=== PATIENT | female | born 1980 | race Asian ===

== ENCOUNTER → 2018-08-07 15:22 | Outpatient (CLI) | payer OTHER, SELFPAY ==
--- NOTE | 2018-08-07 | DI.US.S_ITS ---
PROCEDURE: US THYROID INDICATIONS: THYROTOXICOSIS WITH DIFFUSE GOITER TECHNIQUE: Real-time scanning was performed of the thyroid gland, with image documentation. COMPARISON: [facility], US, THYROID, 01/09/2016, 8:36. FINDINGS: Right: Thyroid lobe measures 5.7 x 2.1 x 2.5 cm, and is heterogeneous s in echotexture. No focal nodules. Left: Thyroid lobe measures 6.2 x 1.7 x 2.0 cm, and is heterogeneous in echotexture. No focal nodules. Isthmus: 7 mm thick. IMPRESSION: Stable interval exam demonstrating heterogeneous thyroid gland without focal nodule. Dictated by: Dania Peck M.D. on 08/07/2018 at 17:38 Approved by: Dania Peck M.D. on 08/07/2018 at 17:39
== END ==
PROVIDERS: PCP Internal Medicine; Visit Provider Internal Medicine
DX: E05.00 Thyrotoxicosis with diffuse goiter without thyrotoxic crisis or storm (principal)
CPT/HCPCS: 76536

== ENCOUNTER → 2020-01-20 17:20 | Outpatient (CLI) | payer OTHER, SELFPAY ==
[2020-01-20 19:10] LABS: TSH w/ Reflex to FT4 2.09 uIU/mL (0.47-4.68)
[2020-01-27 11:44] LABS: Urea Breath Test >18YRS Negative
== END ==
PROVIDERS: PCP Internal Medicine; Referring Provider Internal Medicine; Visit Provider Internal Medicine
DX: R10.33 Periumbilical pain (principal); E05.00 Thyrotoxicosis with diffuse goiter without thyrotoxic crisis or storm
CPT/HCPCS: 36415; 83013; 84443

== ENCOUNTER → 2021-05-11 08:17 | Outpatient (CLI) | payer OTHER, SELFPAY ==
--- NOTE | 2021-05-11 | DI.MRI.S_ITS ---
PROCEDURE: MR LUMBAR SPINE WO CON INDICATIONS: Low back pain, unspecified TECHNIQUE: Noncontrast sagittal T1 spin echo and T2 fast echo, sagittal STIR, axial T1 and T2 fast spin echo through the lumbar spine. In cases with scoliosis, additional coronal T2 fast spin echo may be performed. COMPARISON: [facility] [place], CR, XR LUMBAR SPINE WITH OBLIQUES, 04/05/2021, 12:32. FINDINGS: Image quality: Diagnostic, with note made of motion artifact. Alignment and Curvature: There is normal bony alignment. Bone Marrow: Marrow is of normal overall signal. No acute vertebral body compression fractures. Spinal Cord: Conus medullaris terminates at the L1 level. Visualized cord demonstrates normal signal and size. Paraspinous Soft Tissues: No paravertebral masses. T12-L1: Normal appearance. L1-L2: Normal appearance. L2-L3: Normal appearance. L3-L4: No significant abnormality is seen. L4-L5: The disc height and disk signal are well-preserved. Mild generalized disc bulge is seen. Mild facet joint hypertrophy is seen. An annular fissure can be seen posteriorly and on the left, as on series 6, image 10 and on series 4, image 12. There is [id number] right-sided and moderate left-sided neural foraminal narrowing seen. No significant central canal narrowing is seen. L5-S1: Normal appearance. IMPRESSION: Focal L4-L5 degenerative change, including moderate left-sided neural foraminal narrowing. An annular fissure can also be seen on the left. Dictated by: Abe Lacey M.D. on 05/11/2021 at 10:21 Approved by: Abe Lacey M.D. on 05/11/2021 at 10:24
== END ==
PROVIDERS: PCP Internal Medicine; Referring Provider Physical Medicine & Rehabilitation Pain Medicine; Visit Provider Physical Medicine & Rehabilitation Pain Medicine
DX: M54.50 Low back pain, unspecified (principal); M48.061 Spinal stenosis, lumbar region without neurogenic claudication
CPT/HCPCS: 72148

== ENCOUNTER → 2021-05-22 13:07 | Outpatient (CLI) | payer OTHER, SELFPAY ==
--- NOTE | 2021-05-22 | DI.MRI.S_ITS ---
PROCEDURE: MR CERVICAL SPINE WO CON INDICATIONS: Cervicalgia TECHNIQUE: Noncontrast sagittal T1 spin echo and T2 fast spin echo, sagittal STIR, foraminal oblique sagittal T2 fast spin echo, and axial gradient echo or T2 fast spin echo through the cervical spine. COMPARISON: [facility] [place], CR, XR CERVICAL SPINE WITH OBLIQUES, 05/17/2021, 15:06. FINDINGS: Image quality: Diagnostic Alignment and Curvature: Reversal of the normal cervical lordosis is seen, with the apex at the C3-C4 level. No focal AP alignment abnormality is seen. Bone Marrow: Marrow demonstrates normal overall signal. Spinal Cord: Visualized spinal cord has normal size and signal. No cerebellar tonsillar herniation. Paraspinous Soft Tissues: No paravertebral masses. Prevertebral soft tissues are normal in thickness. C2-C3: No significant abnormality is seen. C3-C4: Mild loss of disc height is seen. Loss of disc signal is seen. A mild degree of generalized disc osteophyte complex is seen. No significant neural foraminal narrowing can be seen. Mild to moderate central canal narrowing is seen. C4-C5: Mild loss of disc height is seen. Loss of disc signal is seen. A mild degree of generalized disc osteophyte complex is seen. Mild facet joint hypertrophy is seen. No significant neural foraminal narrowing is seen. Mild to moderate central canal narrowing can be seen at this level. C5-C6: The disc height is well-preserved. Loss of disc signal is seen at this level. Mild to moderate disc osteophyte complex is seen. Mild to moderate facet hypertrophy is seen. Mild to moderate bilateral neural foraminal narrowing can be seen. Minimal central canal narrowing is seen. C6-C7: The disc height is well-preserved. Loss of disc signal is seen at this level. A mild degree of generalized disc osteophyte complex is seen. Mild facet joint hypertrophy is seen. Minimal to mild bilateral neural foraminal narrowing can be seen. No significant central canal narrowing is seen. C7-T1: No significant abnormality is seen. IMPRESSION: Multiple levels premature degenerative change can be seen. Reversal of the normal cervical lordosis is seen. This is commonly observed in patients with muscular spasm. Dictated by: Abe Lacey M.D. on 05/22/2021 at 13:52 Approved by: Abe Lacey M.D. on 05/22/2021 at 13:58
== END ==
PROVIDERS: PCP Internal Medicine; Referring Provider Physical Medicine & Rehabilitation Pain Medicine; Visit Provider Physical Medicine & Rehabilitation Pain Medicine
DX: M54.2 Cervicalgia (principal); M47.812 Spondylosis without myelopathy or radiculopathy, cervical region
CPT/HCPCS: 72141

== ENCOUNTER → 2022-05-10 14:01 | Outpatient (CLI) | payer OTHER, SELFPAY ==
--- NOTE | 2022-05-10 | DI.RAD.S_ITS ---
PROCEDURE: XR CHEST 2V INDICATIONS: work physical for scuba diving TECHNIQUE: 2 views of the chest were acquired. COMPARISON: None. FINDINGS: Surgical changes and devices: None. Lungs and pleura: Lungs are clear. No pleural effusions or pneumothorax. Mediastinum: Mediastinal contours are normal. Heart size is normal. Bones and chest wall: No suspicious bony abnormalities. Soft tissues appear unremarkable. IMPRESSION: No acute cardiopulmonary disease. Dictated by: Allie Ochoa M.D. on 05/10/2022 at 16:51 Approved by: Allie Ochoa M.D. on 05/10/2022 at 16:51
== END ==
PROVIDERS: PCP Internal Medicine; Referring Provider Internal Medicine; Visit Provider Internal Medicine
DX: Z02.1 Encounter for pre-employment examination (principal)
CPT/HCPCS: 71046

== ENCOUNTER 2022-11-24 12:34 | Emergency (ER) | payer OTHER, SELFPAY ==
[2022-11-24 12:41] VITALS: BP 143/85; PULSE 76; RESP 17; TEMP 36.8; O2SAT 99; BMI 21.6
--- NOTE | 2022-11-24 12:45 | ED.WOUNDLAC ---
HPI - Wound/Laceration General Chief Complaint: Wound/Laceration Stated Complaint: little bit of finger missing Time Seen by Provider: 11/24/22 12:43 Source: patient Mode of arrival: Ambulatory History of Present Illness HPI narrative: 42-year-old female presents for evaluation of finger injury. Patient accidentally got the tip of her finger slammed in a door way. She does not remember when her last tetanus shot was. There is an avulsion injury of the distal tip of her left middle finger. Related Data Home Medications Medication Instructions Recorded Confirmed SELENIUM (#SELENIUM) 200 mcg PO QDAY ##0 12/11/11 02/15/20 ibuprofen 200 mg capsule 200 mg PO PRN ##0 05/20/12 02/15/20 cetirizine 10 mg tablet (Zyrtec) 10 mg PO DAILY PRN 02/15/20 02/15/20 Allergies Allergy/AdvReac Type Severity Reaction Status Date / Time amoxicillin [AMOXICILLIN] Allergy Intermediate FULL BODY Verified 11/24/22 12:40 RASH Review of Systems Review of Systems Narrative: Reports: Left finger pain all other systems negative except as marked. Patient History Surgical History Status post knee surgery Status post laparoscopic supracervical hysterectomy (08/01/15) Family History Father Age: 81 FH: prostate cancer Sleep apnea Diabetes mellitus Dementia Mother Age: 76 Hypertension Loud snoring Heart disease Social History Smoking Status: Never smoker Smoking Status: Never smoker Substance Use Type: does not use Exam Initial Vital Signs Initial Vital Signs: Vital Signs Temperature 98.2 F 11/24/22 12:41 Pulse Rate 76 11/24/22 12:41 Respiratory Rate 17 11/24/22 12:41 Blood Pressure 143/85 H 11/24/22 12:41 Pulse Oximetry 99 11/24/22 12:41 Oxygen Delivery Method Room Air 11/24/22 12:41 Const: Awake, alert, no acute distress, nontoxic appearing Cardiac: regular rate, regular rhythm RESP: unlabored, no wheezing MSK: avulsion distal tip of L middle finger Skin: Warm, Dry, avulsion injury of distal tip of L middle finger. Venous oozing from distal tip Neuro: AO x3, CN II-XII grossly intact, moves all extremities Psych: affect normal, mood normal, not suicidal, not homicidal Course Course Course Narrative: Distal avulsion injury of left middle finger. Tetanus shot updated here. Unfortunately there was not enough skin to create a flap closure of the avulsion injury. Venous oozing was stopped with a pinpoint injection of lidocaine with epinephrine and pressure. Wound exposed, no bone exposure. Bandage applied to the wound and dressing applied. Wound care instructions discussed at bedside. ED return precautions discussed at bedside. Patient expressed understanding of the plan and is in agreement at this time. All questions answered at the time of discharge. Orders Ordered: ED Orders 11/24/22 13:22 XR finger LT min 2V Stat Discontinued Medications Lidocaine HCl (Lidocaine 1% 20 Ml) 20 ml INJ INTRA-OP ONE Stop: 11/24/22 12:45 Vital Signs Vital signs: Vital Signs - 8 hr 11/24/22 12:41 Temperature 98.2 F Pulse Rate 76 Respiratory Rate 17 Blood Pressure 143/85 H Pulse Oximetry 99 Oxygen Delivery Method Room Air Discharge Plan Departure Patient Disposition: Home Clinical Impression: Avulsion of finger Instructions: Minor Wounds (Alternative Therapy) Prescriptions: No Action SELENIUM (#SELENIUM) 200 mcg PO QDAY Qty: 0 ibuprofen 200 MG capsule 200 mg PO PRN Qty: 0 cetirizine [Zyrtec] 10 mg tablet 10 mg PO DAILY PRN Referrals: Naz Puente MD [Primary Care Provider] - Stand Alone Forms: Patient Portal/API
--- NOTE | 2022-11-24 13:22 | DI.RAD.S_ITS ---
PROCEDURE: XR FINGER LT MIN 2V INDICATIONS: crush injury TECHNIQUE: AP hand, 2 views of the 3rd finger(s) acquired. COMPARISON: None. FINDINGS: Bones: No fractures or dislocations. No suspicious bony lesions. 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 Soft tissues: No suspicious soft tissue calcifications. Soft tissue defect at the tip of the 3rd distal phalanx. No definite radiopaque foreign bodies are identified. IMPRESSION: No acute fractures. Soft tissue defect at the tip of the 3rd phalanx. No definite radiopaque foreign bodies are identified. 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 Dictated by: Taj Story M.D. on 11/24/2022 at 13:47 Approved by: Taj Story M.D. on 11/24/2022 at 13:48
== END 2022-11-24 13:44 | disposition home or self-care (01) ==
PROVIDERS: Emergency Provider Emergency Medicine; PCP Internal Medicine
DX: S61.203A Unspecified open wound of left middle finger without damage to nail, initial encounter (principal); W23.0XXA Caught, crushed, jammed, or pinched between moving objects, initial encounter; Y99.0 Civilian activity done for income or pay
CPT/HCPCS: 73140; 99281; 99283

== ENCOUNTER 2023-02-04 12:31 | Emergency (ER) | payer OTHER, SELFPAY ==
[2023-02-04 12:57] VITALS: BP 165/75; PULSE 61; RESP 16; TEMP 37.1; O2SAT 100; BMI 22.4
--- NOTE | 2023-02-04 13:05 | DI.RAD.S_ITS ---
PROCEDURE: XR KNEE RT 3V INDICATIONS: knee swelling and pain TECHNIQUE: 3 views of the knee were acquired. COMPARISON: [facility], CR, XR KNEE 1 OR 2 VIEWS RIGHT, 12/19/2020, 12:45. [facility], CR, XR KNEE 1 OR 2 VIEWS RIGHT, 02/07/2021, 15:33. FINDINGS: Bones: Right lateral hemiarthroplasty hardware is intact . Similar appearance of minimal periprosthetic lucency along the tibial prosthetic component, best seen on lateral view. Prior ACL repair. New ossific density medial to the tibial spines. Mild medial and patellofemoral compartment joint space narrowing and juxta-articular osteophytosis, similar to prior. No suspicious bony lesions. Accessory os fabella, posterior to the lateral femoral condyle. Soft tissues: Small joint effusion. No suspicious soft tissue calcifications. IMPRESSION: 1. New ossific density medial to the tibial spines is indeterminate and may represent an intra-articular avulsion fragment of unknown parent site. Recommend a CT for further evaluation. 2. Right lateral hemiarthroplasty hardware is intact with similar minimal periprosthetic lucency along the tibial prosthetic component. 3. Small suprapatellar joint effusion. Dictated by: Marni Lord M.D. on 02/04/2023 at 13:37 Approved by: Marni Lord M.D. on 02/04/2023 at 13:57
[2023-02-04] MEDS: IBUPROFEN 400 MG TABLET 800 MG PO (13:51)
--- NOTE | 2023-02-04 13:52 | ED_ITS ---
HPI - Extremity Problem <Janiya Conner PA-C - Last Filed: 02/05/23 11:45> General Chief complaint: Extremity Problem,Nontraumatic Stated complaint: swelling right knee Time Seen by Provider: 02/04/23 13:35 Source: patient Mode of arrival: Ambulatory History of Present Illness HPI Narrative: 42-year-old female with past medical history endometriosis, status post hysterectomy, status post right knee replacement in 2020 presents to the ED with right knee pain for 3 days. Patient reports spontaneous onset of right knee swelling and pain. Denies any trauma or stress injuries. Patient states that she had her knee replacement done 2 years ago due to a knee injury she sustained 20 years ago. Patient denies fever, chills, chest pain, shortness of breath, nausea, vomiting, numbness, tingling, weakness. Patient states that she feels pain when flexing the knee as well as when the leg is stationary. Patient noted that her swelling started at the back of the knee, migrated the sides and now she reports swelling all over. Related Data Home Medications Medication Instructions Recorded Confirmed SELENIUM (#SELENIUM) 200 mcg PO QDAY ##0 12/11/11 02/15/20 ibuprofen 200 mg capsule 200 mg PO PRN ##0 05/20/12 02/15/20 cetirizine 10 mg tablet (Zyrtec) 10 mg PO DAILY PRN 02/15/20 02/15/20 Allergies Allergy/AdvReac Type Severity Reaction Status Date / Time amoxicillin [AMOXICILLIN] Allergy Intermediate FULL BODY Verified 11/24/22 12:40 RASH Review of Systems <Janiya Conner PA-C - Last Filed: 02/05/23 11:45> Constitutional Constitutional: Denies chills, Denies fatigue, Denies fever(s), Denies frequent falls, Denies lethargy and Denies weakness Eyes Eyes: Denies change in vision, Denies eye discharge, Denies irritation and Denies loss of vision ENT Ears, Nose, Mouth, and Throat: Denies change in voice, Denies dizziness, Denies neck pain, Denies sore throat and Denies throat swelling Cardiovascular Cardiovascular: Denies chest pain, Denies irregular heart rhythm, Denies lightheadedness, Denies palpitations, Denies dyspnea, Denies dyspnea on exertion and Denies orthopnea Respiratory Respiratory: Denies cough, Denies dyspnea, Denies dyspnea on exertion and Denies wheezing Gastrointestinal Gastrointestinal: Denies abdominal pain, Denies change in bowel habits, Denies diarrhea, Denies nausea and Denies vomiting Musculoskeletal Musculoskeletal: Denies neck pain and Denies numbness Comments: Right knee swelling and pain Integumentary/Breasts Skin/Breast: Denies pruritus, Denies erythema, Denies rash and Denies wounds Neurologic Neurologic: Denies behavioral changes, Denies confusion, Denies dizziness, Denies frequent falls, Denies loss of vision, Denies numbness and Denies weakness Psychiatric Psychiatric: Denies anxiety, Denies behavioral changes, Denies confusion, Denies depression, Denies homicidal ideation and Denies suicidal ideation Endocrine Endocrine: Denies fatigue, Denies flushing and Denies palpitations Hematologic/Lymphatic Hematologic/Lymphatic: Denies easy bruising Allergic/Immunologic Allergic/Immunologic: Denies urticaria, Denies throat swelling and Denies wheezing Patient History <Janiya Conner PA-C - Last Filed: 02/05/23 11:45> Surgical History Status post laparoscopic supracervical hysterectomy (08/01/15) Status post knee surgery Family History Father Age: 83 FH: prostate cancer Sleep apnea Diabetes mellitus Dementia Mother Age: 78 Hypertension Loud snoring Heart disease Social History Smoking Status: Never smoker Smoking Status: Never smoker Substance Use Type: does not use Exam <Janiya Conner PA-C - Last Filed: 02/05/23 11:45> Narrative Exam Narrative: Const General:?cooperative, healthy appearing and comfortable [facility] Head:?normal to inspection Ears:?hearing grossly normal bilaterally Nose:?external nose normal Face and sinus:?normal facial exam and sinuses nontender Mouth:?oral mucosae normal Throat:?posterior oropharynx normal Eyes General:?appearance normal, both eyes and all related structures Neck Neck:?normal visual inspection and no lymphadenopathy noted Resp Effort & Inspection:?normal respiratory effort Auscultation:?clear to auscultation bilaterally Cardio Rate:?regular rate Rhythm:?regular rhythm Musculoskeletal Right knee appears swollen compared to the left. No erythema. No tenderness to palpation. Warm to touch. Patient appears to be in pain with knee flexion and extension. Pulses intact. Strength and sensation is intact. Patient is neurovascularly intact. Neuro General:?patient alert, patient awake and patient oriented x3 Initial Vital Signs Initial Vital Signs: Vital Signs Temperature 98.7 F 02/04/23 12:57 Pulse Rate 61 02/04/23 12:57 Respiratory Rate 16 02/04/23 12:57 Blood Pressure 165/75 H 02/04/23 12:57 Pulse Oximetry 100 02/04/23 12:57 Oxygen Delivery Method Room Air 02/04/23 12:57 <Laure Jay DO - Last Filed: 02/05/23 11:56> Initial Vital Signs Initial Vital Signs: Vital Signs Temperature 98.7 F 02/04/23 12:57 Pulse Rate 61 02/04/23 12:57 Respiratory Rate 16 02/04/23 12:57 Blood Pressure 165/75 H 02/04/23 12:57 Pulse Oximetry 100 02/04/23 12:57 Oxygen Delivery Method Room Air 02/04/23 12:57 Course <Janiya Conner PA-C - Last Filed: 02/05/23 11:45> Orders Ordered: Discontinued Medications Ibuprofen (Ibuprofen 400 Mg Tablet) 800 mg PO NOW ONE Stop: 02/04/23 13:44 Last Admin: 02/04/23 13:51 Dose: 800 mg Documented By: CHANDRAKANT Vital Signs Vital signs: Vital Signs - 8 hr 02/04/23 12:57 02/04/23 15:18 02/04/23 15:20 Temperature 98.7 F 97.6 F Pulse Rate 61 65 Respiratory Rate 16 18 Blood Pressure 165/75 H 126/82 Pulse Oximetry 100 99 Oxygen Delivery Method Room Air Room Air <Laure Jay DO - Last Filed: 02/05/23 11:56> Orders Ordered: Discontinued Medications Ibuprofen (Ibuprofen 400 Mg Tablet) 800 mg PO NOW ONE Stop: 02/04/23 13:44 Last Admin: 02/04/23 13:51 Dose: 800 mg Documented By: CHANDRAKANT Vital Signs Vital signs: Vital Signs - 8 hr 02/04/23 12:57 02/04/23 15:18 02/04/23 15:20 Temperature 98.7 F 97.6 F Pulse Rate 61 65 Respiratory Rate 16 18 Blood Pressure 165/75 H 126/82 Pulse Oximetry 100 99 Oxygen Delivery Method Room Air Room Air MDM - Extremity (Nontraumatic) <Janiya Conner PA-C - Last Filed: 02/05/23 11:45> Lab Data 02/04/23 15:30 02/04/23 15:30 Labs: Lab Results 02/04/23 Range/Units 15:30 WBC 6.5 (4.5-11.0) X10^3/uL RBC 4.44 (4.0-5.2) X10^6/uL Hgb 15.2 (12.0-16.0) g/dL Hct 43.5 (36-46) % MCV 98.0 (80-100) fL MCH 34.2 H (26-34) PG MCHC 34.9 (30-36) % RDW 12.6 (11.6-14.8) % Plt Count 231 (150-400) X10^3/uL Neut % (Auto) 63.4 (50-75) % Lymph % (Auto) 26.1 (25-40) % [place] % (Auto) 7.1 (3-14) % Eos % (Auto) 2.7 (2-4) % Baso % (Auto) 0.7 (0-2) % Neut # (Auto) 4100 (1485-3355) /uL Lymph # (Auto) 1700 (3654-4089) /uL [place] # (Auto) 500 (0-900) /uL Eos # (Auto) 200 (0-450) /uL Baso # (Auto) 0 (0-100) /uL ESR 7 (0-20) MM/HR Sodium 140 (137-145) mmol/L Potassium 3.9 (3.4-5.1) mmol/L Chloride 103 (98-107) mmol/L Carbon Dioxide 28 (22-32) mmol/L BUN 13 (7-17) mg/dL Creatinine 0.68 (0.52-1.04) mg/dL Estimated GFR > 60 (>60) mL/min BUN/Creatinine Ratio 19.1 (6-22) Glucose 101 H (70-100) mg/dL Calcium 9.4 (8.4-10.2) mg/dL Total Bilirubin 0.8 (0.2-1.3) mg/dL AST 32 (14-36) IU/L ALT 37 H (<35) IU/L Alkaline Phosphatase 86 (38-126) U/L C-Reactive Protein < 0.5 (<1.0) mg/dL Total Protein 8.5 H (6.3-8.2) g/dL Albumin 4.7 (3.5-5.0) g/dL Globulin 3.8 (1.7-4.1) g/dL Albumin/Globulin Ratio 1.2 (1.0-2.8) [facility] Narrative Medical decision making narrative: 42-year-old female with past medical history endometriosis, status post hysterectomy, status post right knee replacement in 2020 presents to the ED with right knee pain for 3 days. Concern for fracture/dislocation versus musculoskeletal sprain/strain versus osteomyelitis versus septic arthritis versus other. Will 1st rule out fracture/dislocation with an x-ray, then consider further workup. Will give ibuprofen for pain. Will reassess. X-ray shows a small suprapatellar joint effusion. New ossific density medial to the tibial spines is indeterminate and may represent an intra-articular avulsion fragment of unknown parents site. Right lateral hemiarthroplasty hardware is intact with similar minimal periprosthetic lucency along the tibial prosthetic component. Will obtain a CT scan for further characterization. CT scan shows a large joint effusion, no gross calcified intra-articular loose bodies. No abnormal soft tissue calcifications. 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 No acute fracture or dislocation. No gross hardware loosening or failure. Labs, ESR, CRP were obtained and all within normal limits. Patient continued to experience pain through the ED stay. Patient's ortho surgeon was Dr. Warner, his office at [facility] was consulted. Dr. Warner has since retired, spoke with Dr. Angel who suggested consulting our on-call ortho surgeon to decide if we need to tap the knee. Our on-call ortho surgeon Dr. Scott was consulted, she reviewed the imaging and labs, suspects osteoarthritic flare that is causing a knee effusion. She believes it is highly unlikely infectious given normal labs and no systemic symptoms. She recommends outpatient follow-[facility] with [facility] for further evaluation and treatment. Discussed findings with patient. Recommend continued use of ibuprofen for pain and inflammation control. Patient agrees to follow-up with the orthopedic office. ED return precautions were discussed with patient. Patient verbalized understanding. Medical records reviewed: Yes <Laure Jay DO - Last Filed: 02/05/23 11:56> Lab Data Labs: Lab Results 02/04/23 Range/Units 15:30 WBC 6.5 (4.5-11.0) X10^3/uL RBC 4.44 (4.0-5.2) X10^6/uL Hgb 15.2 (12.0-16.0) g/dL Hct 43.5 (36-46) % MCV 98.0 (80-100) fL MCH 34.2 H (26-34) PG MCHC 34.9 (30-36) % RDW 12.6 (11.6-14.8) % Plt Count 231 (150-400) X10^3/uL Neut % (Auto) 63.4 (50-75) % Lymph % (Auto) 26.1 (25-40) % [place] % (Auto) 7.1 (3-14) % Eos % (Auto) 2.7 (2-4) % Baso % (Auto) 0.7 (0-2) % Neut # (Auto) 4100 (0041-8375) /uL Lymph # (Auto) 1700 (8174-5430) /uL [place] # (Auto) 500 (0-900) /uL Eos # (Auto) 200 (0-450) /uL Baso # (Auto) 0 (0-100) /uL ESR 7 (0-20) MM/HR Sodium 140 (137-145) mmol/L Potassium 3.9 (3.4-5.1) mmol/L Chloride 103 (98-107) mmol/L Carbon Dioxide 28 (22-32) mmol/L BUN 13 (7-17) mg/dL Creatinine 0.68 (0.52-1.04) mg/dL Estimated GFR > 60 (>60) mL/min BUN/Creatinine Ratio 19.1 (6-22) Glucose 101 H (70-100) mg/dL Calcium 9.4 (8.4-10.2) mg/dL Total Bilirubin 0.8 (0.2-1.3) mg/dL AST 32 (14-36) IU/L ALT 37 H (<35) IU/L Alkaline Phosphatase 86 (38-126) U/L C-Reactive Protein < 0.5 (<1.0) mg/dL Total Protein 8.5 H (6.3-8.2) g/dL Albumin 4.7 (3.5-5.0) g/dL Globulin 3.8 (1.7-4.1) g/dL Albumin/Globulin Ratio 1.2 (1.0-2.8) Discharge Plan Departure Patient Disposition: Home Clinical Impression: Effusion of knee Qualifiers: Laterality: right Qualified Code(s): M25.461 - Effusion, right knee Instructions: DI for Knee Effusion Activity Restrictions/Additional Instructions: You were evaluated in the ED today for right-sided knee swelling and pain. Your x-ray and CT did not show any abnormalities other than worsening arthritis and knee effusion. We consulted our orthopedic surgeon here on-call who recommends you follow-up with [facility] to follow-up with an ortho specialist. It is unlikely that you have an infection, given that you have normal labs and no fevers or chills. You may continue to take ibuprofen, Tylenol for your pain. Return to the ED if you have worsening symptoms, numbness, tingling, weakness. Prescriptions: No Action SELENIUM (#SELENIUM) 200 mcg PO QDAY Qty: 0 ibuprofen 200 MG capsule 200 mg PO PRN Qty: 0 cetirizine [Zyrtec] 10 mg tablet 10 mg PO DAILY PRN Referrals: Naz Puente MD [Primary Care Provider] - Stand Alone Forms: Patient Portal/API ED Sign-out <Laure Jay DO - Last Filed: 02/05/23 11:56> Cosign ED Attending Natanature Attestation: I was immediately available in the department for consultation. Case was discussed imaging was reviewed plan for labs including ESR CRP and orthopedic consultation. Orthopedic recommendations reviewed.
--- NOTE | 2023-02-04 14:07 | DI.CT.S_ITS ---
PROCEDURE: CT LE RT WO CON INDICATIONS: knee swelling TECHNIQUE: Noncontrast 1-1.5 mm axial sections acquired from the mid-patella to the proximal tibia, with coronal and sagittal reformats. COMPARISON: [facility], CR, XR KNEE RT 3V, 02/04/2023, 13:19. FINDINGS: Image quality: Excellent. Bones: Patient is status post prior ACL reconstruction and lateral femoral tibial compartment arthroplasty with postsurgical changes. There is moderate medial femoral tibial compartment and patellofemoral compartment osteoarthritis. No acute fracture or dislocation. No gross hardware loosening or failure . Alignment of left knee is anatomic without abnormal anterior tibial translation. Soft tissues: There is moderate to large joint effusion, no calcified intra-articular loose bodies. Distal quadriceps tendon and patellar tendon are intact. No abnormal soft tissue calcifications. IMPRESSION: 1. Postsurgical changes from prior ACL reconstruction and lateral patellofemoral compartment arthroplasty. Anatomic right knee alignment without abnormal anterior tibial translation. No acute fracture or dislocation. No gross hardware loosening or failure. 2. Moderate medial femoral tibial compartment and patellofemoral compartment osteoarthritis. 3. Large joint effusion, no gross calcified intra-articular loose bodies . No abnormal soft tissue calcifications. Dictated by: Ephraim Ott M.D. on 02/04/2023 at 14:34 Approved by: Ephrami Ott M.D. on 02/04/2023 at 14:41
[2023-02-04 15:18] VITALS: BP 126/82; PULSE 65; RESP 18; O2SAT 99
[2023-02-04 15:20] VITALS: TEMP 36.4
[2023-02-04 15:46] LABS: Add Manual Diff / Slide Review NO; Basophils Absolute Auto 0 /uL (0-100); Basophils Percent Auto 0.7 % (0-2); Eosinophils Absolute Auto 200 /uL (0-450); Eosinophils Percent Auto 2.7 % (2-4); Hematocrit 43.5 % (36-46); Hemoglobin 15.2 g/dL (12.0-16.0); Lymphocytes Absolute Auto 1700 /uL (1100-4500); Lymphocytes Percent Auto 26.1 % (25-40); Mean Corpuscular HGB Conc 34.9 % (30-36); Mean Corpuscular Hemoglobin 34.2 PG (26-34); Monocytes Absolute Auto 500 /uL (0-900); Monocytes Percent Auto 7.1 % (3-14); Neutrophils Absolute Auto 4100 /uL (1500-7000); Neutrophils Percent Auto 63.4 % (50-75); Platelet Count 231 X10^3/uL (150-400); Red Blood Cell Count 4.44 X10^6/uL (4.0-5.2); Red Cell Distribution Width 12.6 % (11.6-14.8); White Blood Cell Count 6.5 X10^3/uL (4.5-11.0)
[2023-02-04 16:06] LABS: Erythrocyte Sedimentation Rate 7 MM/HR (0-20)
[2023-02-04 16:23] LABS: Alanine Aminotransferase 37 IU/L (<35); Albumin 4.7 g/dL (3.5-5.0); Albumin Globulin Ratio 1.2 (1.0-2.8); Alkaline Phosphatase 86 U/L (38-126); Aspartate Aminotransferase 32 IU/L (14-36); BUN Creatinine Ratio 19.1 (6-22); Bilirubin Total 0.8 mg/dL (0.2-1.3); Blood Urea Nitrogen 13 mg/dL (7-17); C-Reactive Protein Quant < 0.5 mg/dL (<1.0); Calcium 9.4 mg/dL (8.4-10.2); Carbon Dioxide 28 mmol/L (22-32); Chloride 103 mmol/L (98-107); Estimated Glomerular Filt Rate > 60 mL/min (>60); Globulin 3.8 g/dL (1.7-4.1); Glucose 101 mg/dL (70-100); HEMOLYSIS < 15 (0-50); Potassium 3.9 mmol/L (3.4-5.1); Sodium 140 mmol/L (137-145); Total Protein 8.5 g/dL (6.3-8.2)
[2023-02-04 18:58] VITALS: BP 124/71; PULSE 59; RESP 18; O2SAT 100
== END 2023-02-04 18:59 | disposition home or self-care (01) ==
PROVIDERS: Emergency Provider Student in an Organized Health Care Education/Training Program; PCP Internal Medicine
DX: M25.461 Effusion, right knee (principal); Z96.651 Presence of right artificial knee joint
CPT/HCPCS: 73562; 73700; 80053; 85025; 85651; 86140; 99284; 99285